=== PATIENT | male | born 1965 | race Caucasian/White ===

== ENCOUNTER 2016-07-28 14:27 | Observation (INO) ==
[2016-07-28 15:07] LABS: Hematocrit 48.1 % (37.5-50.1); Hemoglobin 16.7 g/dL (12.9-16.9); Mean Corpuscular HGB Conc 34.7 g/dL (31.6-35.5); Mean Corpuscular Hemoglobin 29.2 pg (28.0-33.3); Mean Corpuscular Volume 84.2 fL (83.0-100.0); Platelet Count 213 K/mcL (140-400); Red Blood Count 5.71 M/mcL (4.19-5.50); Red Cell Distribution Width 12.8 % (11.5-14.5); Segmented Neutrophils % 81.2 %
[2016-07-28 15:08] LABS: Basophils % 0.5 %; Immature Granulocytes % 0.2 % (0-4); Lymphocytes # 1.1 K/mcL (0.6-4.6); Lymphocytes % 12.5 %; Monocytes # 0.5 K/mcL (0.0-1.3); Monocytes % 5.6 %; Neutrophils # 7.1 K/mcL (1.6-8.9)
[2016-07-28 15:22] LABS: BUN/Creatinine Ratio 9 (6-26); Blood Urea Nitrogen 12 mg/dL (8-26); Calcium 9.9 mg/dL (8.6-10.8); Carbon Dioxide 23 mEq/L (19-29); Chloride 104 mEq/L (98-109); Glucose 106 mg/dL (70-99); Osmolality,Calculated 284 (280-300); Potassium 3.8 mEq/L (3.5-4.5); Sodium 137 mEq/L (136-145); eGFR For African Americans > 60 (> 60); eGFR For Non-African Americans 59 (> 60)
[2016-07-28] MEDS ORDERED: 0.9 % Sodium Chloride 1,000 ML IVC ONE (15:30)
--- NOTE | 2016-07-28 15:33 | Emergency Department Note ---
Disposition Clinical Impression: Tachypnea, Dyspnea on exertion, Fever and chills Disposition: Admitted As Inpatient Condition: Undetermined Referrals: NO,PCP [Non-Partnered Physician] - Forms: ED Satisfaction Letter Time of Disposition: 17:34 Weakness HPI - General Chief complaint: ED Weakness Stated complaint: Weakness, Elevated HR Time Seen by Provider: 07/28/16 15:17 Source: patient, family Mode of arrival: ambulatory Limitations: no limitations Nursing Notes Reviewed: Yes Vital Signs Reviewed: Yes - History of Present Illness HPI Narrative: 51-year-old male with history of hypertension arrives to [facility] emergency department complaining of generalized weakness, dyspnea on exertion, tachycardia, feeling ill, fever at home, over the past 2 days. The patient states his symptoms have progressively worsened. The patient denies any active chest pain, difficulty breathing. The patient denies any abdominal pain, unilateral leg swelling, history DVT, history of cancer. The patient denies any productive cough but states that he has had a nonproductive hacking cough. The patient is sitting on the bed deep breaths at this time. He denies any other complaints. The patient is mildly tachycardic, heart rate 102, with no hypoxia noted. Pt Subjective Complaint: generalized weakness/fatigue Onset (ago): day(s) (2) Duration: constant, gradually worsening Pain Scale: 0 Associated symptoms: Reports: diaphoresis - Related Data Home Medications Medication Instructions Recorded Confirmed FLUoxetine HCl [PROzac] 60 mg PO DAILY 07/31/15 07/31/15 Lisinopril [Zestril] 10 mg PO DAILY 07/31/15 07/31/15 Previous Rx's Medication Instructions Recorded Acetaminophen [Tylenol] 650 mg PO Q6HR PRN #10 tablet 07/31/15 Loperamide [Imodium] 2 mg PO DAILY PRN #6 capsule 07/31/15 Ondansetron HCl [Zofran] 4 mg PO TID PRN #10 tablet 07/31/15 Tamsulosin [Flomax] 0.4 mg PO DAILY 7 Days 07/31/15 Ondansetron ODT [Zofran ODT] 4 mg SL Q6HR #15 tab.rapdis 09/07/15 Oxycodone HCl/Acetaminophen 1 - 2 each PO Q4-6H PRN #25 tablet 09/07/15 [Percocet 5-325 mg Tablet] Allergies Allergy/AdvReac Type Severity Reaction Status Date / Time No Known Allergies Allergy Verified 09/07/15 00:39 All systems ED: reviewed and negative except as stated. Constitutional: Reports: chills, weakness. Denies: fever, weight change Eyes: Denies: eye pain, eye discharge, vision change ENT ED: Denies: ear pain, throat pain, dental pain, hearing loss, epistaxis, congestion, dysphagia Cardiovascular: Reports: dyspnea on exertion. Denies: chest pain, palpitations , edema, syncope Respiratory: Reports: cough, dyspnea. Denies: wheezes, hemoptysis, stridor Gastrointestinal: Denies: abdominal pain, nausea, vomiting, diarrhea, constipation, hematemesis, melena, hematochezia Genitourinary: Denies: urgency, dysuria, frequency, hematuria Musculoskeletal: Denies: back pain, neck pain, arthralgia, myalgia Integumentary: Denies: rash, abrasion, lesions Neurological: Reports: weakness. Denies: headache, numbness, paresthesias, confusion, abnormal gait, vertigo Psychiatric: Reports: depression Endocrine: Reports: fatigue Past Medical History - Past Medical History Attestation: Yes The following information was validated with the patient. Source: patient Medical history: Reports: hypertension, kidney stones Surgical history: Reports: non-contributory Psychiatric history: Reports: anxiety, depression - Social History Smoking Status: Never smoker Smokeless Tobacco Status: No Alcohol use: Reports: occasionally Drug use: Reports: none Physical Exam Physical Exam: General: Patient alert, no acute distress, not lethargic, mildly anxious in the room HEENT: Head normal inspection, atraumatic, PERRLA, oropharynx grossly intact and normal, trachea midline, no JVD Chest: Nontraumatic, nontender, normal chest rise CV: Regular rhythm with tachycardia with no murmurs, rubs, gallops Respiratory: Lungs clear to auscultation bilaterally, no rales, rhonchi, wheezes. Abdomen: Normal inspection, Normal bowel sounds 4 quadrants, nontender to palpation : Patient deferred Extremities: Normal inspection, full range of motion, appropriate pulses, capillary refill under 2 seconds Neurological: Patient alert and oriented 3, cranial nerves II through XII grossly intact, GCS 15 Skin: Warm, intact, no rashes noted - General Limitations: no limitations General appearance: in no apparent distress Course Vital Signs Temperature 98.4 F 07/28/16 14:28 Pulse Rate 111 07/28/16 14:28 Respiratory Rate 18 07/28/16 14:28 Blood Pressure 117/80 07/28/16 14:28 O2 Sat by Pulse Oximetry 99 07/28/16 14:28 Temperature 98.4 F 07/28/16 14:28 Pulse Rate 95 07/28/16 17:04 Respiratory Rate 18 07/28/16 17:04 Blood Pressure 92/59 07/28/16 17:04 O2 Sat by Pulse Oximetry 99 07/28/16 17:04 Oxygen Delivery Oxygen Delivery Room Air Weakness - MDM Narrative Medical decision making narrative: Workup in the emergency department reveals no acute findings other than an elevated d-dimer. CTA of the patient's chest revealed no pulmonary embolus. There are no findings suggestive of production of the patient's symptoms. The patient remains tachypneic in the room. After explaining all the results to the patient he does state that he was bit by take at least 2 weeks ago. His fevers may be consistent worth a tick borne illness. We will go ahead and begin the patient on doxycycline treatment. Given the patient's symptoms of tachycardia as high as 150 at home and 102 here in the emergency department, combined with his tachypnea and symptoms of dyspnea on exertion on ambulation, we will admit the patient to the hospital for observation and further workup. Patient notified of this and agrees to plan. 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 The patient denies any other new complaints at this time. We will contact the hospitalist for depression. Accepted by Hospitalist - Medical Records Medical records reviewed: Yes I reviewed the patient's medical records. - Lab Data Lab results reviewed: Yes I reviewed the patient's lab results. Result diagrams: 07/28/16 14:59 07/28/16 14:59 Lab Results 07/28/16 07/28/16 07/28/16 Range/Units 14:59 14:59 14:59 WBC 8.8 (4.3-11.1) K/mcL RBC 5.71 H (4.19-5.50) M/mcL Hgb 16.7 (12.9-16.9) g/dL Hct 48.1 (37.5-50.1) % MCV 84.2 (83.0-100.0) fL MCH 29.2 (28.0-33.3) pg MCHC 34.7 (31.6-35.5) g/dL RDW 12.8 (11.5-14.5) % Plt Count 213 (140-400) K/mcL MPV 10.0 (9.4-12.4) fL Immature Gran % 0.2 (0-4) % Seg Neutrophils % 81.2 % Lymphocytes % 12.5 % Monocytes % 5.6 % Eosinophils % 0.0 % Basophils % 0.5 % Neutrophils # 7.1 (1.6-8.9) K/mcL Lymphocytes # 1.1 (0.6-4.6) K/mcL Monocytes # 0.5 (0.0-1.3) K/mcL Eosinophils # 0.0 (0.0-0.6) K/mcL Basophils # 0.0 (0.0-0.2) K/mcL D-Dimer (0-500) ng/mLFEU Sodium 137 (136-145) mEq/L Potassium 3.8 (3.5-4.5) mEq/L Chloride 104 (98-109) mEq/L Carbon Dioxide 23 (19-29) mEq/L BUN 12 (8-26) mg/dL Creatinine 1.28 H (0.72-1.25) mg/dL Est GFR ( Amer) > 60 (> 60) Est GFR (Non-Af Amer) 59 L (> 60) BUN/Creatinine Ratio 9 (6-26) Glucose 106 H (70-99) mg/dL Calculated Osmolality 284 (280-300) Calcium 9.9 (8.6-10.8) mg/dL Troponin I 0.00 (0-0.03) ng/mL B-Natriuretic Peptide (0-100) pg/mL 07/28/16 07/28/16 Range/Units 14:59 14:59 WBC (4.3-11.1) K/mcL RBC (4.19-5.50) M/mcL Hgb (12.9-16.9) g/dL Hct (37.5-50.1) % MCV (83.0-100.0) fL MCH (28.0-33.3) pg MCHC (31.6-35.5) g/dL RDW (11.5-14.5) % Plt Count (140-400) K/mcL MPV (9.4-12.4) fL Immature Gran % (0-4) % Seg Neutrophils % % Lymphocytes % % Monocytes % % Eosinophils % % Basophils % % Neutrophils # (1.6-8.9) K/mcL Lymphocytes # (0.6-4.6) K/mcL Monocytes # (0.0-1.3) K/mcL Eosinophils # (0.0-0.6) K/mcL Basophils # (0.0-0.2) K/mcL D-Dimer 978 H (0-500) ng/mLFEU Sodium (136-145) mEq/L Potassium (3.5-4.5) mEq/L Chloride (98-109) mEq/L Carbon Dioxide (19-29) mEq/L BUN (8-26) mg/dL Creatinine (0.72-1.25) mg/dL Est GFR ( Amer) (> 60) Est GFR (Non-Af Amer) (> 60) BUN/Creatinine Ratio (6-26) Glucose (70-99) mg/dL Calculated Osmolality (280-300) Calcium (8.6-10.8) mg/dL Troponin I (0-0.03) ng/mL B-Natriuretic Peptide 25 (0-100) pg/mL - Radiology Data Radiology results reviewed: Yes I reviewed the patient's radiology results. - EKG Data EKG attestation: Yes I reviewed and interpreted this EKG. EKG results narrative: Heart rate 10 4 bpm. AL interval 146 ms. QTC 394 ms. Normal axis. Sinus tachycardia. No ST elevation or ST depression noted.
--- NOTE | 2016-07-28 15:37 | Emergency Department Note ---
START Narrative - START START: I examined this patient and my medical decision-making was reviewed with the WOOD CABINETMAKER/PA/Advanced Practice Nurse/Resident Physician. I agree with the documented findings, disposition and treatment plan as described except to the extent set forth below. ED attending note: I saw this Patient with the emergency medicine resident Dr. Valdes. Please see a copy of his note for details of the H&P, evaluation, management and disposition of this emergency Department patient. We independently had [id number] contact with the patient. Briefly: A 51-year-old male via EMS for tachypnea and tach tachycardia that is brought on by exertion. 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 EKG shows sinus tachycardia with nonspecific ST-T changes. Patient's troponin and lab work, otherwise negative including CBC a BMP and a basic metabolic panel. Chest x- ray read by radiology as no acute process. Patient will have a d-dimer. Patient getting 1 L fluid bolus. A bump in his creatinine. Provided 35 minutes critical care services for this patient. Disposition pending.
[2016-07-28] MEDS ORDERED: Doxycycline 100 MG CAPSULE PO ONE (17:22)
[2016-07-28] MEDS ORDERED: Naloxone 0.4 MG/ML INJ IVP PRN (20:11)
[2016-07-28] MEDS ORDERED: 0.9 % Sodium Chloride 1,000 ML IVC SCH (20:15)
[2016-07-28] MEDS ORDERED: Acetaminophen 325 MG TABLET PO PRN (20:48)
--- NOTE | 2016-07-28 21:19 | Internal Med History&Physical ---
Date of Encounter: 07/28/16 Time of Encounter: 21:16 Assessment and Plan (1) Fever of unknown origin (FUO) Current visit: Yes Status: Acute With reported fevers that started 2 days prior to admission. Tmax 101.5 while inpatient. Etiology unknown at this time. Received one-time dose of doxycycline in the ED for possible Lyme disease however patient unable to confirm that he was bit by a tick No neurological red flags on exam no abnormal rashes lesions or wounds noted. Possibly viral etiology WBC 8K, blood cultures , UA with C&S, C. difficile, respiratory PCR pending. ID consulted (2) SANDRA (acute kidney injury) Current visit: Yes Status: Acute Creatinine 1.2, baseline normal IV fluids. Holding home Kamar. Monitor repeat CMP. (3) Essential (primary) hypertension Current visit: Yes Status: Acute Per history. BP controlled, holding home 80s with SANDRA. Add when necessary hydralazine for SBP greater than 160. Resume home BP medication when AK I resolved. (4) DVT prophylaxis Current visit: Yes Status: Acute Heparin Internal Medicine - H&P: HPI Chief complaint: fever, tachycardia Admitted From: Home History of present illness: Mr. Valladares is a 51 year old male past medical history hypertension and GHANSHYAM who presented to [facility] on 07/28/2016 with fevers and tachycardia. He was admitted for further workup and treatment. Information obtained from chart review and patient report. 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 He also thought tachycardic and has pulse oximeter at home monitored his heart rate was up in the 150s. He then reports shortness of breath started today with fevers as high as 102 at home. On my exam he is ill appearing. He reports being bit by a tick couple weeks ago on his leg and then he thinks he was bit by something on his left buttocks but he is not sure if it was a tick. No obvious infectious source no rashes or lesions noted. 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 He does report loose stool but says he always has loose stool. He has fever nonproductive cough and he takes a deep breath he has to cough. No chest pain no abdominal pain no nausea or vomiting. Past Med Surg Social Fam HX - Past Medical History Medical history: hypertension, kidney stones Psychiatric history: anxiety, depression - Past Surgical History Surgical History: non-contributory - Social History Smoking Status: Never smoker Smokeless Tobacco Status: No Alcohol use: occasionally Drug use: none - Family History Mother Adopted: [place]: OUMAR Family Member Ethnicity: Non- Living Status: Age at : 63 Cause of : IDIOPATHIC PULMONARY FIBROSIS Hx Family Cardiac Disorders: No Hx Family Respiratory Disorders: Yes (PE) Hx Family Cancer: Yes Hx Family GI Disorders: No Hx Family Genitourinary Disorders: No Hx Family Endocrine Disorder: No Hx Family Musculoskeletal Disorders: No Hx Family Neuromuscular Disorders: No Hx Family Neurologic Disorders: No Hx Family HEENT Disorders: No Hx Family Autoimmune Disorders: No Hx Family Reproductive Disorders: No Hx Family Psychosocial Disorders: No Hx Family Medical Disorders: No Internal Medicine - H&P: Meds FLUoxetine HCl [PROzac] 60 mg PO DAILY 07/31/15 [History] Lisinopril [Zestril] 10 mg PO DAILY 07/31/15 [History] Loratadine [Claritin] 10 mg PO DAILY 07/28/16 [History] Allergies No Known Allergies Allergy (Verified 09/07/15 00:39) All Systems PM: A 10-system review of systems was performed and is negative for pertinent findings except as documented above in the HPI. - Constitutional Constitutional: fever(s), lethargy, malaise, no chills, no night sweats - EENT Eyes: no change in vision, no discharge, no pain, no photophobia Ears: no ear discharge, no ear pain, no tinnitus Nose, mouth and throat: no dysphagia, no nasal discharge, no neck pain, no sore throat - Cardiovascular Cardiovascular ROS IM: no chest pain, no diaphoresis, no dyspnea, no lightheadedness, no palpitations, no syncope - Respiratory Respiratory: no cough, no dyspnea, no wheezing, no excessive phlegm production - Gastrointestinal Gastrointestinal: no abdominal pain, no diarrhea, no hematemesis, no hematochezia, no melena, no nausea, no vomiting - Musculoskeletal Musculoskeletal ROS IM: no numbness, no tingling - Integumentary Integumentary IM: no rash, no unusual bruising - Neurological Neurological ROS: no confusion, no convulsions, no focal weakness, no numbness, no tingling, no tremor(s) - Hematologic/Lymphatic Hematologic/Lymphatic: no easy bruising - Constitutional Vitals: Temp Pulse Resp BP Pulse Ox 101.5 F H 104 15 149/83 97 07/28/16 19:29 07/28/16 19:29 07/28/16 19:29 07/28/16 19:29 07/28/16 19:29 General appearance: Present: A&O X 3 - Head Head exam: Present: atraumatic, normocephalic - Eye Eye exam: Present: PERRL, conjuntiva pink, sclera anicteric Pupils: Present: PERRL - Neck Neck exam general surgery: Present: supple, trachea midline. Absent: lymphadenopathy - Respiratory Respiratory exam: Present: CTAB. Absent: accessory muscle use, rales, rhonchi, wheezes - Cardiovascular Cardiovascular exam: Present: RRR, +S1, +S2. Absent: diastolic murmur, gallop, rubs, systolic murmur - GI/Abdominal GI/Abdominal exam: Present: normal bowel sounds, soft, no peritoneal signs. Absent: distended, tenderness Additional comments: ABD obese - Extremities Exam Extremities exam: Present: warm, radial pulses palpable and symetrical. Absent : calf tenderness, cyanotic, pedal edema - Neurological Exam Neurological exam: Present: CN II-XII intact, oriented X3, no focal deficits. Absent: pronater drift, facial droop, speech deficit - Skin Skin exam: Present: dry, intact Internal Med - H&P Results - Labs CBC & Chem 7: 07/28/16 14:59 07/28/16 14:59
[2016-07-28] MEDS: 0.9 % Sodium Chloride 1,000 ML IVC SCH (22:43)
[2016-07-28] MEDS ORDERED: Vancomycin 1,750 MG in D5% in Water 250 ML IVPB ONE (23:21)
[2016-07-28 23:42] LABS: Alanine Aminotransferase 12 Units/L (0-55); Albumin 3.8 g/dL (3.5-5.0); Albumin/Globulin Ratio 0.9 (1.1-2.2); Alkaline Phosphatase 144 Units/L (38-126); Aspartate Amino Transferase 16 Units/L (5-34); Bilirubin,Direct 0.3 mg/dL (0.0-0.5); Bilirubin,Indirect 0.5 mg/dL (0.0-1.2); Bilirubin,Total 0.8 mg/dL (0.2-1.2); Globulin 4.2 g/dL (2.4-3.5)
[2016-07-28 23:57] LABS: Adenovirus Not Detected (Not Detect); Bordetella Pertussis Not Detected (Not Detect); Chlamydophila pneumoniae Not Detected (Not Detect); Coronavirus 229E Not Detected (Not Detect); Coronavirus HKU1 Not Detected (Not Detect); Coronavirus NL63 Not Detected (Not Detect); Coronavirus OC43 Not Detected (Not Detect); Human Metapneumovirus Not Detected (Not Detect); Human Rhinovirus/Enterovirus Not Detected (Not Detect); Influenza A Subtype 2009 H1 Not Detected (Not Detect); Influenza A Untypeable Not Detected (Not Detect); Influenza B Not Detected (Not Detect); Mycoplasma pneumoniae Not Detected (Not Detect); Parainfluenza Virus 1 Not Detected (Not Detect); Parainfluenza Virus 2 Not Detected (Not Detect); Parainfluenza Virus 3 Not Detected (Not Detect); Parainfluenza Virus 4 Not Detected (Not Detect); Respiratory Syncytial Virus Not Detected (Not Detect)
[2016-07-29] MEDS: Vancomycin 1,750 MG in D5% in Water 500 ML IVPB SCH ×2 (01:05→14:09)
[2016-07-29] MEDS ORDERED: Piperacillin/Tazobactam 3.375 GM in D5% in Water (Mini-Bag+) 100 ML IVPB ONE (02:00)
[2016-07-29 05:17] LABS: Basophils % 0.4 %; Eosinophils % 0.4 %; Hematocrit 45.6 % (37.5-50.1); Immature Granulocytes % 0.4 % (0-4); Lymphocytes # 1.3 K/mcL (0.6-4.6); Lymphocytes % 23.4 %; Mean Corpuscular HGB Conc 32.9 g/dL (31.6-35.5); Mean Corpuscular Hemoglobin 28.2 pg (28.0-33.3); Mean Corpuscular Volume 85.9 fL (83.0-100.0); Mean Platelet Volume 10.4 fL (9.4-12.4); Monocytes # 0.6 K/mcL (0.0-1.3); Monocytes % 10.5 %; Neutrophils # 3.6 K/mcL (1.6-8.9); Platelet Count 196 K/mcL (140-400); Red Blood Count 5.31 M/mcL (4.19-5.50); Red Cell Distribution Width 12.8 % (11.5-14.5); Segmented Neutrophils % 64.9 %
[2016-07-29 05:39] LABS: Alanine Aminotransferase 11 Units/L (0-55); Albumin 3.1 g/dL (3.5-5.0); Albumin/Globulin Ratio 0.8 (1.1-2.2); Alkaline Phosphatase 115 Units/L (38-126); Aspartate Amino Transferase 12 Units/L (5-34); BUN/Creatinine Ratio 9 (6-26); Bilirubin,Total 0.8 mg/dL (0.2-1.2); Blood Urea Nitrogen 12 mg/dL (8-26); Calcium 8.9 mg/dL (8.6-10.8); Carbon Dioxide 27 mEq/L (19-29); Chloride 105 mEq/L (98-109); Globulin 3.8 g/dL (2.4-3.5); Glucose 104 mg/dL (70-99); Osmolality,Calculated 286 (280-300); Potassium 3.7 mEq/L (3.5-4.5); Sodium 138 mEq/L (136-145); Total Protein 6.9 g/dL (6.0-8.3); eGFR For African Americans > 60 (> 60); eGFR For Non-African Americans 59 (> 60)
[2016-07-29] MEDS ORDERED: *HR* Heparin 5,000 UNIT/ML VIAL SQ SCH (06:00)
[2016-07-29] MEDS ORDERED: Doxycycline 100 MG in 0.9 % Sodium Chloride Mini Bag 100 ML IVPB SCH (06:00)
[2016-07-29] MEDS: Acetaminophen 325 MG TABLET PO SCH ×4 (06:38→18:11)
[2016-07-29 07:02] LABS: Bilirubin,Urine Negative (Negative); Blood,Urine Trace-lysed (Negative); Clarity,Urine Clear (Clear); Color,Urine Yellow (Yellow); Glucose,Urine (UA) Normal (Normal); Ketones,Urine Negative (Negative); Leukocyte Esterase,Urine Negative (Negative); Nitrite,Urine Negative (Negative); Protein,Urine 30 mg/dL (Neg-Trace); Urobilinogen,Urine Normal (Normal)
[2016-07-29 07:10] LABS: Amorphous Sediment,Urine Few (Few); Bacteria,Urine Few per hpf (None-Few); RBC,Urine 0-3 per hpf (0-3); Squamous Epithelial Cell,Urine Few per lpf (None-Few); WBC,Urine 0-3 per hpf (0-3)
[2016-07-29 07:10] LABS: Hepatitis B Surface Antigen Nonreactive (Nonreactive)
[2016-07-29] MEDS: 0.9 % Sodium Chloride 1,000 ML IVC SCH ×2 (08:22→20:47)
[2016-07-29] MEDS: Doxycycline 100 MG CAPSULE PO SCH ×2 (08:23→20:47)
[2016-07-29] MEDS: Loratadine 10 MG TABLET PO SCH (08:23)
[2016-07-29] MEDS: FLUoxetine 20 MG CAPSULE PO SCH (08:23)
[2016-07-29 10:09] LABS: Hepatitis A Antibody IgM Nonreactive (Nonreactive); Hepatitis B Core IgM Nonreactive (Nonreactive); Hepatitis C Virus Antibody Nonreactive (Nonreactive)
[2016-07-29] MEDS ORDERED: Aminoglycoside Consult 1 EACH MC ONE (12:09)
--- NOTE | 2016-07-29 16:35 | Infectious Disease Consult ---
Date of Encounter: 07/29/16 Time of Encounter: 16:34 Assessment and Plan (1) Sepsis Status: Acute Assessment and plan: Patient had 3 SIRS criteria on admission Source not clear Concern for possible viral exanthem versus tickborne illness versus other Improved significantly on doxycycline Currently much improved Continue doxycycline for now Check Ehrlichia and Anaplasma serology Low index of suspicion for histoplasmosis even though the patient has chicken home but he does not appear toxic and significantly improved with no treatment for histoplasmosis Discussed at length with the primary team If continues to be afebrile and clinically doing okay to more morning may DC home on a 5-7 day course of doxycycline Await cultures to finalize Qualifiers: Sepsis type: sepsis due to unspecified organism Qualified Code(s): A41.9 - Sepsis, unspecified organism (2) Tick bite of buttock Status: Acute Assessment and plan: Concern for tick bite illness. Patient had had 2 tick bites in the last 3 weeks No associated rash No leukopenia, no thrombocytopenia, no elevated LFTs Continue doxycycline Qualifiers: Encounter type: initial encounter Qualified Code(s): S30.860A - Insect bite (nonvenomous) of lower back and pelvis, initial encounter; W57.XXXA - Bitten or stung by nonvenomous insect and other nonvenomous arthropods, initial encounter (3) Hypertension Status: Acute Qualifiers: Hypertension type: essential hypertension Qualified Code(s): I10 - Essential (primary) hypertension (4) Obstructive sleep apnea Status: Acute (5) SANDRA (acute kidney injury) Status: Acute Infectious Disease HPI - Data of Consult Patient: new to practice Consult date: 07/29/16 Requesting Physician: Bessy Nelson Primary Care Provider: Carter Morillo MD - Consult Narrative Reason for consult: Sepsis History of present illness: Mr. Valladares is a 51 year old male Patient is 51-year-old gentleman who is admitted to [facility] on 07/28/2016 for fever and shortness of breath thick, we are consult did to evaluate the patient for sepsis. Patient is a 51-year-old gentleman with history of hypertension and obstructive sleep apnea presented to [facility] with fevers and tachycardia. Patient tells me that he was at work confused state and after work he came home he just felt weak and tired and felt that he was having chills, rigors tachycardia and maybe some fever. Patient woke up on Monday and he tried to go outside to water the animals and feet them and he stated that he felt everything was to have the and he was tachycardic he took his pulse oximetry was running 140s 150s heart rate. Patient was also having fevers and is feeling weak and tired. 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 She denies any travel outside of the [place] or anywhere in the recent past. Patient states that his had earache and sinusitis about few weeks back. Patient has channing home nonedematous sick and he has no other exposure. Patient tells me that he has chicken, rabbits, horses and dogs on his property. Patient also states that may be 3-4 weeks ago he had a tick bite on his left lower extremity. He states that the tick was not engorged. Patient also felt another tick on his buttock about 10 days ago but he did see if it was engorged or not. Patient denied any headache, no visual changes, no neck stiffness outside of the ordinary, no rhinorrhea and no earaches no sore throat no oral lesions. Patient denied any chest pain or shortness of breath. Patient denied any cough or sputum production. Patient denied any abdominal pain no nausea or vomiting diarrhea or constipation. Patient she did have some diarrhea that resolved. Patient denies any urinary symptoms. Patient denies any rash. Patient denies any joint pain or effusion. Since admission patient has been febrile with MAXIMUM TEMPERATURE of 101.5 Fahrenheit, patient was tachycardic, presenting WBC of 8.8 with neutrophilic predominance at 82%. Patient also was noted to have some elevated creatinine at 1.3, elevated inflammatory markers including ESR and CRP. C. difficile was checked and it was negative respiratory infectious panel was also checked and it came back negative. Patient was given doxycycline and then was given a dose of vancomycin and Zosyn. We were asked to evaluate the patient and make further recommendations. Currently patient is laying in bed appears very comfortable. He states he feels so much better. He said he has more strength more energy and just doesn't feel better overall. CC: Bessy Nelson Past Med Surg Social Fam HX - Past Medical History Medical history: hypertension, kidney stones Psychiatric history: anxiety, depression - Past Surgical History Surgical History: non-contributory - Social History Smoking Status: Never smoker Smokeless Tobacco Status: No Alcohol use: occasionally Drug use: none - Family History Mother Adopted: [place]: OUMAR Family Member Ethnicity: Non- Living Status: Age at : 63 Cause of : IDIOPATHIC PULMONARY FIBROSIS Hx Family Cardiac Disorders: No Hx Family Respiratory Disorders: Yes (PE) Hx Family Cancer: Yes Hx Family GI Disorders: No Hx Family Genitourinary Disorders: No Hx Family Endocrine Disorder: No Hx Family Musculoskeletal Disorders: No Hx Family Neuromuscular Disorders: No Hx Family Neurologic Disorders: No Hx Family HEENT Disorders: No Hx Family Autoimmune Disorders: No Hx Family Reproductive Disorders: No Hx Family Psychosocial Disorders: No Hx Family Medical Disorders: No Infectious Disease-CN:Meds FLUoxetine HCl [PROzac] 60 mg PO DAILY 07/31/15 [History] Lisinopril [Zestril] 10 mg PO DAILY 07/31/15 [History] Loratadine [Claritin] 10 mg PO DAILY 07/28/16 [History] Allergies No Known Allergies Allergy (Verified 09/07/15 00:39) Review of systems: 10 point review of systems done, pertinent positives and negatives are mentioned in history of present illness. Exam - Constitutional Vitals: Temp Pulse Resp BP Pulse Ox 97.3 F L 81 17 120/78 96 07/29/16 15:34 07/29/16 15:34 07/29/16 15:34 07/29/16 15:34 07/29/16 15:34 General appearance: cooperative, no acute distress, no febrile - Head Head exam: Present: atraumatic, normocephalic - Eye Eye exam: Present: EOMI, PERRL, sclera anicteric - ENT ENT exam: Present: mucous membranes dry - Neck Neck exam: Present: full ROM. Absent: meningismus - Respiratory Respiratory exam: Present: CTAB. Absent: rhonchi, wheezes - Cardiovascular Cardiovascular exam: Present: RRR, +S1, +S2 - GI/Abdominal GI/Abdominal exam: Present: soft. Absent: tenderness Additional comments: Negative Olivares sign - Extremities Exam Extremities exam: Present: full ROM, normal inspection. Absent: pedal edema Additional comments: No joint effusion noted - Neurological Exam Neurological exam: Present: alert, oriented X3. Absent: no focal deficits - Psychiatric Psychiatric exam: Present: normal affect, normal mood - Skin Skin exam: Absent: rash Infectious Disease CN: Results - Labs CBC & Chem 7: 07/29/16 04:35 07/29/16 04:35 Serology: Serology 07/29/16 07/29/16 07/29/16 Range/Units 13:55 06:45 04:35 Urine Color Yellow (Yellow) Urine Clarity Clear (Clear) Urine pH 6.0 (5.0-8.0) pH Units Ur Specific [place] 1.020 (1.010-1.025) Urine Protein 30 H (Neg-Trace) mg/dL Urine Glucose (UA) Normal (Normal) mg/dL Urine Ketones Negative (Negative) mg/dL Urine Blood Trace-lysed H (Negative) Urine Nitrite Negative (Negative) Urine Bilirubin Negative (Negative) Urine Urobilinogen Normal (Normal) mg/dL Ur Leukocyte Esterase Negative (Negative) Urine Microscopic RBC 0-3 (0-3) per hpf Urine Microscopic WBC 0-3 (0-3) per hpf Ur Squamous Epith Cells Few (None-Few) per lpf Amorphous Sediment Few (Few) Urine Bacteria Few (None-Few) per hpf Stl C. diff Tox B Gene Negative (Negative) Chlamy pneumoniae PCR (Not Detect) Adenovirus (PCR) (Not Detect) B. pertussis DNA (PCR) (Not Detect) Lyme Total Antibody negative (Negative) Coronavirus OC43 (PCR) (Not Detect) Coronavirus HKU1 (PCR) (Not Detect) Coronavirus 229E (PCR) (Not Detect) Coronavirus NL63 (PCR) (Not Detect) Hepatitis A IgM Ab (Nonreactive) Hep Bs Antigen (Nonreactive) Hep B Core IgM Ab (Nonreactive) Hepatitis C Ab Screen (Nonreactive) Human Metapneumovirus (Not Detect) Influenza A (H1) PCR (Not Detect) Influ A (H1N1/09) PCR (Not Detect) Influenza A (H3) PCR (Not Detect) Influenza A Untype (PCR) (Not Detect) Influenza Type B (PCR) (Not Detect) M.pneumoniae DNA (PCR) (Not Detect) Parainfluenza 1 (PCR) (Not Detect) Parainfluenza 2 (PCR) (Not Detect) Parainfluenza 3 (PCR) (Not Detect) Parainfluenza 4 (PCR) (Not Detect) RSV (PCR) (Not Detect) Entero/Rhino (PCR) (Not Detect) 07/29/16 07/28/16 Range/Units 04:35 21:50 Urine Color (Yellow) Urine Clarity (Clear) Urine pH (5.0-8.0) pH Units Ur Specific [place] (1.010-1.025) Urine Protein (Neg-Trace) mg/dL Urine Glucose (UA) (Normal) mg/dL Urine Ketones (Negative) mg/dL Urine Blood (Negative) Urine Nitrite (Negative) Urine Bilirubin (Negative) Urine Urobilinogen (Normal) mg/dL Ur Leukocyte Esterase (Negative) Urine Microscopic RBC (0-3) per hpf Urine Microscopic WBC (0-3) per hpf Ur Squamous Epith Cells (None-Few) per lpf Amorphous Sediment (Few) Urine Bacteria (None-Few) per hpf Stl C. diff Tox B Gene (Negative) Chlamy pneumoniae PCR Not Detected (Not Detect) Adenovirus (PCR) Not Detected (Not Detect) B. pertussis DNA (PCR) Not Detected (Not Detect) Lyme Total Antibody (Negative) Coronavirus OC43 (PCR) Not Detected (Not Detect) Coronavirus HKU1 (PCR) Not Detected (Not Detect) Coronavirus 229E (PCR) Not Detected (Not Detect) Coronavirus NL63 (PCR) Not Detected (Not Detect) Hepatitis A IgM Ab Nonreactive (Nonreactive) Hep Bs Antigen Nonreactive (Nonreactive) Hep B Core IgM Ab Nonreactive (Nonreactive) Hepatitis C Ab Screen Nonreactive (Nonreactive) Human Metapneumovirus Not Detected (Not Detect) Influenza A (H1) PCR Not Detected (Not Detect) Influ A (H1N1/09) PCR Not Detected (Not Detect) Influenza A (H3) PCR Not Detected (Not Detect) Influenza A Untype (PCR) Not Detected (Not Detect) Influenza Type B (PCR) Not Detected (Not Detect) M.pneumoniae DNA (PCR) Not Detected (Not Detect) Parainfluenza 1 (PCR) Not Detected (Not Detect) Parainfluenza 2 (PCR) Not Detected (Not Detect) Parainfluenza 3 (PCR) Not Detected (Not Detect) Parainfluenza 4 (PCR) Not Detected (Not Detect) RSV (PCR) Not Detected (Not Detect) Entero/Rhino (PCR) Not Detected (Not Detect) Consult Discharge Plan - Plan Referrals: Carter Morillo MD [Primary Care Provider] -
--- NOTE | 2016-07-29 17:03 | Internal Med Progress Note ---
Date of Encounter: 07/29/16 Time of Encounter: 10:20 - Assessment and plan (1) Fever of unknown origin (FUO) Current Visit: Yes Status: Acute Assessment and plan: Patient reports 3 day history of myalgias, chills, weakness, tachycardia, dyspnea on exertion, fever. Patient reports fever 102 at home, 101.5 while inpatient. Etiology remains unknown today. He received doxycycline in the emergency department for possible Lyme disease after having 2 ticks on his left lower extremity. There is no bull's-eye noted. He also reports a new nonproductive cough. His chest x-ray is negative at this time. We are still waiting on urine and sputum cultures. There is no leukocytosis. He has been afebrile for almost 24 hours. Viral panel, hepatitis panel, C. difficile and Lyme antibodies are all negative. Only HIV, urine, and sputum cultures remain on resulted. ID consultation pending Continue doxycycline Monitor labs and vital signs (2) Fatigue Current Visit: Yes Status: Acute Assessment and plan: Plan as above Qualifiers: Fatigue type: unspecified Qualified Code(s): R53.83 - Other fatigue (3) SANDRA (acute kidney injury) Current Visit: Yes Status: Acute Assessment and plan: Creatinine 1.29. Continue IV fluids. Kamar is held. Labs in the morning. Avoid nephrotoxins Avoid NSAIDs (4) Essential (primary) hypertension Current Visit: Yes Status: Acute Assessment and plan: Chronic. Continue home medications (5) DVT prophylaxis Current Visit: Yes Status: Acute Assessment and plan: Heparin SQ daily - Time Spent With Patient less than 15 minutes - Subjective Interval history: Patient is resting quietly in his bed this morning. He is alert and awake and oriented. He was seen and assessed at about 1020 this morning. He reports that about 3 days ago he began having chills and body aches, but was able to complete his daily tasks. 2 days ago he became exceptionally weak, tachycardic and had dyspnea on exertion.. Yesterday he said that he went to urgent care because he was outside and had to sit down in the middle of the field because he could not continue due to fatigue. He was sent here from urgent care for evaluation. He reports that he had a tick on his left lower extremity 2 weeks ago. He reported having a fever of 102 at home. When he arrived to the emergency department he did have a fever, shortness of breath, profuse diaphoresis, tachycardia. He was treated with IV antibiotics, as well as doxycycline for suspected Lyme disease. His viral panel, C. difficile, hepatitis panel, and Lyme antibody have all come back negative. He does report new nonproductive cough, chest x-ray is negative for any cardiopulmonary processes or disease. He does not have leukocytosis. He has not had a fever since 2200 last night. His sats remain within normal limits without oxygen. He is no longer tachycardic. I did stop the vancomycin and Zosyn. He has remained on by mouth doxycycline. We are still waiting on ID consult, I appreciate their recommendations. - Constitutional Vitals: Temp Pulse Resp BP Pulse Ox 97.3 F L 81 17 120/78 96 07/29/16 15:34 07/29/16 15:34 07/29/16 15:34 07/29/16 15:34 07/29/16 15:34 General appearance: Present: cooperative, A&O X 3, no acute distress, answers questions appropriately - Head Head exam: Present: normal inspection - Eye Eye exam: Present: EOMI, normal appearance, conjuntiva pink. Absent: nystagmus - ENT ENT exam: Present: mucous membranes moist, normal exam, normal external ear exam - Neck Neck exam general surgery: Present: normal inspection. Absent: lymphadenopathy , tenderness - Cardiovascular Cardiovascular exam: Present: RRR, +S1, +S2. Absent: bradycardia, clicks, gallop, systolic murmur - GI/Abdominal GI/Abdominal exam: Present: normal bowel sounds, soft. Absent: distended, firm , hepatomegaly, tenderness - Neurological Exam Neurological exam: Present: alert, oriented X3, no focal deficits, strengths equal and symetr throughout. Absent: facial droop, speech deficit Internal Medicine: Result - Labs CBC & Chem 7: 07/29/16 04:35 07/29/16 04:35 Labs: Short CBC 07/29/16 Range/Units 04:35 WBC 5.6 (4.3-11.1) K/mcL Hgb 15.0 D (12.9-16.9) g/dL Hct 45.6 (37.5-50.1) % Plt Count 196 (140-400) K/mcL Neutrophils # 3.6 (1.6-8.9) K/mcL BMP 07/29/16 04:35 Sodium 138 Potassium 3.7 Chloride 105 Carbon Dioxide 27 BUN 12 Creatinine 1.29 H Glucose 104 H Calcium 8.9 Liver Function 07/29/16 Range/Units 04:35 Total Bilirubin 0.8 (0.2-1.2) mg/dL AST 12 (5-34) Units/L ALT 11 (0-55) Units/L Alkaline Phosphatase 115 (38-126) Units/L Albumin 3.1 L (3.5-5.0) g/dL Urine 07/29/16 Range/Units 06:45 Urine Color Yellow (Yellow) Urine Clarity Clear (Clear) Urine pH 6.0 (5.0-8.0) pH Units Ur Specific [place] 1.020 (1.010-1.025) Urine Protein 30 H (Neg-Trace) mg/dL Urine Glucose (UA) Normal (Normal) mg/dL - ABG Interpretation ABG results: PT/INR, D-dimer D-Dimer 978 ng/mLFEU (0-500) H 07/28/16 14:59 Consult Discharge Plan - Plan Referrals: Carter Morillo MD [Primary Care Provider] -
[2016-07-30] MEDS: 0.9 % Sodium Chloride 1,000 ML IVC SCH (06:22)
[2016-07-30] MEDS: Doxycycline 100 MG CAPSULE PO SCH (08:11)
[2016-07-30] MEDS: FLUoxetine 20 MG CAPSULE PO SCH (08:12)
[2016-07-30] MEDS: Loratadine 10 MG TABLET PO SCH (08:12)
--- NOTE | 2016-07-30 08:51 | Electrocardiograph Report ---
[place] [id number] Test Date: 2016-07-28 Pat Name: Garrett Valladares Department: 103 Room: 3B23 Gender: M Delivery Stock Clerk: JOSE RAUL : 1965 Requested By: Manolo Frye Order Number: [id number] Reading MD: Jean-Paul Ivan DO Measurements Intervals [place] Rate: 104 P: 33 OR: 146 QRS: 2 QRSD: 102 T: 17 QT: 333 QTc: 394 Interpretive Statements SINUS TACHYCARDIA ABNORMAL RHYTHM ECG Electronically Signed On 07-30-2016 8:49:56 EDT by Jean-Paul Ivan DO
[2016-07-30 09:45] LABS: Basophils % 0.3 %; Hematocrit 42.6 % (37.5-50.1); Hemoglobin 14.2 g/dL (12.9-16.9); Immature Granulocytes % 0.3 % (0-4); Lymphocytes # 0.9 K/mcL (0.6-4.6); Lymphocytes % 23.3 %; Mean Corpuscular HGB Conc 33.3 g/dL (31.6-35.5); Mean Platelet Volume 10.7 fL (9.4-12.4); Monocytes # 0.4 K/mcL (0.0-1.3); Monocytes % 9.3 %; Neutrophils # 2.6 K/mcL (1.6-8.9); Platelet Count 204 K/mcL (140-400); Red Blood Count 5.07 M/mcL (4.19-5.50); Red Cell Distribution Width 12.8 % (11.5-14.5); Segmented Neutrophils % 65.8 %
--- NOTE | 2016-07-30 10:16 | Discharge Summary ---
Date of Encounter: 07/30/16 Time of Encounter: 09:10 - Discharge Diagnosis (1) Fever of unknown origin (FUO) Priority: Primary Status: Acute Comments: Patient reported 3 day history of myalgias, chills, weakness, tachycardia and dyspnea on exertion, and fever of 102 at home. Highest fever was on a 1.5 while inpatient. Etiology still unclear. He received Doxil in the emergency room that has been continued. He was also treated with vancomycin and Zosyn. He reported a new nonproductive cough, chest x-ray was negative. He had no leukocytosis. Viral panel, hepatitis panel, C. difficile and Lyme antibodies are all negative. Blood cultures are also negative. Only HIV and urine cultures remain without results. Patient is low risk for HIV. He is sexually active with his only. He does report having two ticks on left lower extremity within the last 2 weeks. There is no bull's-eye, rash, redness. Patient has been seen by infectious disease physician, will follow up outpatient. Doxycycline will be continued at home for 5-7 days. He has been afebrile for over 24 hours. Labs for Ehrlichia and Anaplasma are pending. (2) Fatigue Priority: Secondary Status: Acute Comments: Patient states that he feels better today than he did the past week. He says that he is not quite back to baseline but almost. He is ready to go home. He will continue antibiotics, rest, increase fluid intake. Qualifiers: Fatigue type: unspecified Qualified Code(s): R53.83 - Other fatigue (3) SANDRA (acute kidney injury) Priority: Secondary Status: Acute Comments: Kamar was held while inpatient. Renal function has returned to baseline. Can restart lisinopril at home. Continue to avoid NSAIDs and nephrotoxins. Maintain adequate by mouth hydration. Follow-up with primary care. (4) Essential (primary) hypertension Priority: Secondary Status: Chronic Comments: Well-controlled in inpatient setting. Continue home medications. (5) DVT prophylaxis Priority: Secondary Status: Acute Comments: Heparin subcutaneous daily. - Discharge Medications Prescriptions: Doxycycline 100 mg PO BID #14 capsule Lisinopril [Zestril] 10 mg PO DAILY #10 tablet Home Medications: FLUoxetine HCl [Prozac] 60 mg PO DAILY 07/31/15 [History] Loratadine [Claritin] 10 mg PO DAILY 07/28/16 [History] Doxycycline 100 mg PO BID #14 capsule 07/30/16 [Rx] Lisinopril [Zestril] 10 mg PO DAILY #10 tablet 07/30/16 [Rx] Allergies/Adverse Reactions: Allergies No Known Allergies Allergy (Verified 09/07/15 00:39) Date of admission: 07/28/16 17:52 Primary care physician: Carter Morillo MD Consults: 07/28/16 21:16 Consult to Infectious Diseases [CONS] Routine Consulting Provider: Infectious Disease Sharla Reason for Consult: FUO Call Completed: No Discharging clinician: Jaky Linares Anticipated date of discharge: 07/30/16 - Patient Status Disposition: Home, Self-Care Condition: Good Functional capacity at discharge: independent ambulation Overall status at discharge: patient is back to baseline - Discharge Instructions Follow Up With: Carter Morillo MD [Primary Care Provider] - Additional Instructions: Take your Doxycycline twice daily until it is gone. Stay hydrated and rest for the next few days. Follow up with your primary care physician in the next week for a hospital follow up visit. Return to the ER as needed for any new or concerning symptoms or for any other problems or concerns. Tylenol for aches and fever, if needed. - Diet and Activity Activity: resume usual activities as tolerated Diet: advance to your usual diet Hospital course: Mr. Valladares is a 51 year old male with a history of hypertension and sleep apnea, who presents to the emergency department on July 28 with complaint of several day history of fever, fatigue, shortness of breath, and weakness. He stated initially started out with chills and myalgias, and progressed to activity intolerance, weakness, dyspnea on exertion. He said he was working outside in a field and became so tired and short of breath that he had to sit down in the middle of the field and rest. He does report a new nonproductive cough. 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 He has not traveled outside of the country. Patient reports fever of 102 degrees at home. He reports that he has had 2 ticks on his left lower extremity in the last 10-14 days. He did initially receive doxycycline in the emergency department, he was also treated with Zosyn and vancomycin that were stopped yesterday due to no white count, fever resolved. There has been no leukocytosis present through visit. Patient's CTA was negative, lungs remained clear anteriorly and posteriorly. There is no respiratory distress, no wheezes no rales no rhonchi. He has S1-S2 with regular rate and rhythm without murmurs, clicks, gallops, or rubs. His abdomen is soft slightly distended, nontender to palpation, bowel sounds present. He has no peripheral edema. He has no anterior posterior cervical lymphadenopathy. His skin is pink warm and dry. Patient was seen by infectious disease. His viral panel, Lyme antibody, hepatitis panel, and blood cultures were all negative. C. difficile panel and urine were also negative. Urine culture is still pending, as is HIV testing. Patient will follow-up with infectious disease and primary care physician. While inpatient, patient was found to have an acute kidney injury.Vancomycin was stopped, IV hydration was continued, lisinopril was stopped. Renal function has returned to normal limits, creatinine within normal limits. Patient will continue lisinopril at home. Patient has been afebrile for greater than 24 hours, he says that he feels better, labs are within normal limits, vital signs are stable, patient is ready for discharge. - Time Spent with Patient Total time spent providing and/or coordinating discharge services: Less than 30 minutes - Constitutional Vitals: Temp Pulse Resp BP Pulse Ox 99.0 F 82 18 146/91 96 07/30/16 07:17 07/30/16 07:17 07/30/16 07:17 07/30/16 07:17 07/30/16 07:17 General appearance: Present: cooperative, A&O X 3, pleasant, no acute distress, answers questions appropriately - Head Head exam: Present: normal inspection - Eye Eye exam: Present: normal appearance, conjuntiva pink - ENT ENT exam: Present: mucous membranes moist, normal exam, normal external ear exam - Neck Neck exam general surgery: Present: normal inspection. Absent: lymphadenopathy , tenderness - Respiratory Respiratory exam: Present: CTAB. Absent: rales, respiratory distress, rhonchi, wheezes - Cardiovascular Cardiovascular exam: Present: RRR, +S1, +S2. Absent: clicks, diastolic murmur, gallop, systolic murmur - GI/Abdominal GI/Abdominal exam: Present: normal bowel sounds, soft. Absent: hepatomegaly, tenderness - Extremities Exam Extremities exam: Present: normal capillary refill, normal inspection, warm, radial pulses palpable and symetrical. Absent: pedal edema, tenderness - Neurological Exam Neurological exam: Present: alert, oriented X3, no focal deficits, strengths equal and symetr throughout - Skin Skin exam: Present: dry, intact, normal color, warm. Absent: diaphoretic, pallor, rash
[2016-07-30 11:07] LABS: BUN/Creatinine Ratio 9 (6-26); Blood Urea Nitrogen 8 mg/dL (8-26); Calcium 8.9 mg/dL (8.6-10.8); Carbon Dioxide 23 mEq/L (19-29); Chloride 106 mEq/L (98-109); Glucose 100 mg/dL (70-99); Osmolality,Calculated 284 (280-300); Potassium 3.7 mEq/L (3.5-4.5); Sodium 138 mEq/L (136-145); eGFR For African Americans > 60 (> 60); eGFR For Non-African Americans > 60 (> 60)
[2016-07-30 11:37] VITALS: BP 129/78
== END 2016-07-30 12:10 | disposition home or self-care (01) ==
LOC: EMEROO 14:27 → 3BNU 14:27
PROVIDERS: ADMIT Registered Nurse; ATTEND Internal Medicine Endocrinology, Diabetes & Metabolism